=== PATIENT | female | born 1955 | race Two or more races ===

== ENCOUNTER 2023-10-03 11:27 | Emergency (ER) | payer OTHER, MEDICAID ==
[~2023-10-03] VITALS: Ht 149.9 cm; Wt 57.2 kg
[2023-10-03 11:45] VITALS: PULSE 95; RESP 18; O2SAT 98
[2023-10-03] MEDS ORDERED: NAPR-746 PO (12:36)
[2023-10-03] MEDS ORDERED: AMOX500T86 PO (12:36)
[2023-10-03 12:46] VITALS: BP 142/74; PULSE 70; RESP 20; TEMP 98.1; O2SAT 98
== END 2023-10-03 12:48 | disposition home or self-care (01) ==
LOC: ER 11:27
DX: S71.111A Laceration without foreign body, right thigh, initial encounter (principal); W54.0XXA Bitten by dog, initial encounter; Y93.89 Activity, other specified; Y92.89 Other specified places as the place of occurrence of the external cause; Y99.8 Other external cause status
CPT/HCPCS: 12002